=== PATIENT | female | born 1955 | race Caucasian/White ===

== ENCOUNTER 2017-02-12 07:35 | Day surgery (SDC) | payer BC ==
[~2017-02-12] VITALS: Ht 152.4 cm; Wt 88.7 kg
[2017-02-12] VITALS (12 sets, daily range): BP systolic 116–176; BP diastolic 55–68; PULSE 60–88; RESP 13–19; Ht 152.4 cm; Wt 88.7 kg
[~2017-02-12 07:35] MED LIST: BUPIVACAINE 0.5%/EPI (SDV) 10 ML INJ ONE; CEFAZOLIN 1 GM INJ ONE; EPINEPHrine 1 MG INJ ONE; GENTAMICIN 80 MG INJ ONE; METF500T4 PO; POLYMYXIN/BACITRACIN 1L IRRIG ONE; SOD CHLORIDE 0.9% 1,000 ML IV SCH
--- NOTE | 2017-02-12 07:40 | HPN ---
Date/Time of Note Date/Time of Note DATE: 02/12/17 TIME: 07:38 Interval H&P Admission Note Pt. seen H&P reviewed: No system changes DAJA SHAW MD Feb 12, 2017 07:40
[2017-02-12] MEDS ORDERED: GLYB5TAB3 PO (07:45)
[2017-02-12] MEDS ORDERED: LETR2.5T PO (07:45)
[2017-02-12] MEDS ORDERED: MECL-77 PO (07:45)
[2017-02-12] MEDS ORDERED: MELO7.5O PO (07:45)
--- NOTE | 2017-02-12 07:48 | OPR ---
Date/Time of Note Date/Time of Note DATE: 02/12/17 TIME: 07:43 Operative Report Free Text/Dictation Plastic Surgery Operative Report Preoperative diagnosis: right breast absence Postoperative diagnosis: same Procedure: right breast tissue machine design teacher reconstruction Surgeon:christine Guzman.: none Anesthesia: gen EBL:min IV fluids: per flow sheet Findings: n/a Complications: none Dispo: home Indications for procedure: 61 yo patient presents for tissue machine design teacher right breast reconstruction. The risks, benefits, and alternatives of performing this procedure were discussed with the patient including the risks of bleeding, infection, wound healing problems, machine design teacher extrusion, pain and tightness, need for removal. We discussed that if radiation is involved, it may alter the outcome. The risk of asymmetry and need for revision surgery were also discussed. The patient states that she understands these risks and would like to proceed with the procedure. All questions were answered, no guarantees were given with regards the outcome of this procedure. Description of procedure: The patient was brought to the operating room at [facility] where general anesthesia was induced, and the patient was prepped and draped in the usual sterile fashion. First, a total of 5 cc of local anesthetic solution containing 0.25% maracine with 1:200,000 epi were injected into the planned incision site in the prior mastectomy scar in the right breast. Next, the 10 blade was used to incise through the scar, and then electrocautery was used to dissect down to the pectoralis muscle. The mastectomy flaps were re-elevated off of the underlying pectoralis muscle until adequate elevation and visualization have been achieved. Next, electrocautery was used to make a longitudinal incision in the pectoralis muscle, and the subpectoral space was entered with electrocautery. A pocket was then created in the subpectoral plane. Dissection proceeded medially, superiorly, and laterally, and then inferiorly. Once the inferior most point of the dissection had been achieved, dissection turned superiorly, and the inferior portion of the pectoralis muscle was released and the subcutaneous plane was entered. Once the pocket had completely been created, the base width was then measured and was found to be approximately 14cm. Therefore, an Allergan [id number] 375cc tissue machine design teacher was opened, rinsed in antibiotic irrigation, the air was evacuated, and then gloves were changed and this was inserted into the right breast. Next, a total of 60 cc of sterile saline was injected into the machine design teacher. The pectoralis muscle was then closed with 2-0 Vicryl suture. An additional round of hemostasis and irrigation was carried out. 50 cc of a dilute exparel solution was injected around the breast, and 1 x 15 Bhaskar drains were inserted through a stab incision in the axilla and were secured in place with 2-0 nylon suture. 140cc additional were injected into the machine design teacher for a total of 200cc which did not put excess tension on the skin flaps. The breast was then closed with 3-0 Vicryl suture and 4-0 Monocryl suture and was dressed with Dermabond, Tegaderm, and an ABD. the patient tolerated this procedure well , there were no complications, follow-up information and wound care instructions were given. Surgeon see signature line DAJA SHAW MD Feb 12, 2017 07:48
[2017-02-12] MEDS ORDERED: FENTAnyl 50 MCG/ML VIAL ONE ×2 (08:02→08:44)
[2017-02-12] MEDS ORDERED: ROCURONIUM 50 MG INJ ONE (08:02)
[2017-02-12] MEDS ORDERED: MIDAZOLAM 1 MG/ML 2 ML INJ ONE (08:02)
[2017-02-12] MEDS ORDERED: PROPOFOL 20 ML ONE (08:02)
[2017-02-12] MEDS ORDERED: SODIUM CL BACTERIOSTATIC 30 ML INJ ONE ×2 (08:10)
[2017-02-12] MEDS ORDERED: ONDANSETRON 4 MG INJ ONE (08:28)
[2017-02-12] MEDS ORDERED: METOCLOPRAMIDE 10 MG INJ ONE (08:28)
[2017-02-12] MEDS ORDERED: DEXAMETHASONE 4 MG/ML 1 ML INJ ONE (08:29)
[2017-02-12] MEDS ORDERED: BUPIVACAINE LIPOSOME/PF 266 MG/20 ML VIAL INFIL SCH (08:30)
[2017-02-12] MEDS ORDERED: SUGAMMADEX SODIUM 200 MG/2 ML VIAL IV ONE (09:25)
[2017-02-12] MEDS ORDERED: DIPHENHYDRAMINE 50 MG INJ ONE (09:33)
[2017-02-12] MEDS ORDERED: DIPHENHYDRAMINE 50 MG INJ IV PRN (10:00)
[2017-02-12] MEDS ORDERED: morphine 2 MG INJ IV PRN (10:00)
[2017-02-12] MEDS ORDERED: EPHEDrine SULFATE 50 MG/5 ML SYG IV PRN (10:00)
[2017-02-12] MEDS ORDERED: ONDANSETRON 4 MG INJ IV PRN ×2 (10:00)
[2017-02-12] MEDS ORDERED: FENTAnyl 50 MCG/ML VIAL IV PRN ×3 (10:00)
[2017-02-12] MEDS ORDERED: OXYCODONE/ACETAMINOPHEN (5/325) TAB PO PRN ×2 (10:00)
[2017-02-12] MEDS ORDERED: hydrALAzine 20 MG INJ IV PRN (10:00)
[2017-02-12] MEDS ORDERED: HYDROCODONE/APAP (5/325) TAB PO PRN (10:00)
[2017-02-12] MEDS ORDERED: METOCLOPRAMIDE 10 MG INJ IV PRN (10:00)
[2017-02-12] MEDS ORDERED: HYDROmorphONE (0.2 MG/ML) 10ML SYG IV PRN ×3 (10:00)
[2017-02-12] MEDS ORDERED: MEPERIDINE 25 MG INJ IV PRN (10:00)
[2017-02-12] MEDS ORDERED: LABETALOL HCL 20MG INJ IV PRN (10:00)
== END 2017-02-12 12:23 | disposition home or self-care (01) ==
LOC: SDS 07:35
PROVIDERS: ATTEND Surgery Plastic and Reconstructive Surgery
DX: N65.1 Disproportion of reconstructed breast (principal); E11.9 Type 2 diabetes mellitus without complications
CPT/HCPCS: 19357; 82962; C1789; C9290; J0690; J1100; J1170; J1200; J1580; J2250; J2405; J2765; J3010; Z7512; Z7610; J0171

== ENCOUNTER 2017-08-13 09:38 | Day surgery (SDC) | END 2017-08-13 17:00 | disposition home or self-care (01) ==